=== PATIENT | female | born 1995 | race Caucasian/White ===

== ENCOUNTER 2018-08-08 05:43 | Emergency (ER) | payer OTHER ==
[~2018-08-08] VITALS: Ht 175.3 cm; Wt 81.7 kg
[2018-08-08] MEDS ORDERED: SINGULAIR 10 MG10 M1 PO (06:06)
[2018-08-08] MEDS ORDERED: SPRINTEC1 EACH PO (06:06)
[2018-08-08] MEDS ORDERED: ZOLOFT25 MG PO (06:06)
[2018-08-08] MEDS ORDERED: CLEOCIN HCL150 MG PO (06:07)
[2018-08-08 06:09] LABS: URINE BILIRUBIN NEGATIVE (Negative); URINE BLOOD 3+ (Negative); URINE CLARITY CLEAR; URINE COLOR YELLOW; URINE GLUCOSE-RANDOM* NEGATIVE (Negative); URINE KETONES NEGATIVE (Negative); URINE LEUKOCYTES-REFLEX 1+ (Negative); URINE NITRITE-REFLEX NEGATIVE (Negative); URINE PROTEIN (DIPSTICK) 1+ (Negative); URINE SPECIFIC GRAVITY 1.025 (1.005-1.035); URINE UROBILINOGEN 0.2 E.U./dl (0.2-1.0)
[2018-08-08 06:27] LABS: BACTERIA-REFLEX 1-9 Few /HPF (None Seen); CASTS None Seen /LPF (None Seen); CRYSTALS None Seen /LPF (None Seen); SQUAMOUS 0-3 Few /LPF (0-3); URINE RBC >20 Many /HPF (0-2)
[2018-08-08] MEDS ORDERED: IBUPROFEN 600600 M1 PO (06:36)
[2018-08-08] MEDS ORDERED: ZOFRAN ODT4 MG PO (06:36)
[2018-08-08] MEDS ORDERED: BACTRIM DS TAB1 EACH PO (06:36)
[2018-08-08] MEDS ORDERED: PYRIDIUM200 MG PO (06:59)
[2018-08-08 07:01] VITALS: BP 116/93
== END 2018-08-08 07:09 | disposition home or self-care (01) ==
LOC: ER 05:43
PROVIDERS: Emergency Medicine
DX: N30.90 Cystitis, unspecified without hematuria (principal); Z88.0 Allergy status to penicillin; Z88.1 Allergy status to other antibiotic agents